=== PATIENT | male | born 1970 | race Native Hawaiian/Other Pacific Islander ===

== ENCOUNTER 2017-07-30 15:26 | Emergency (ER) | payer OTHER ==
[~2017-07-30] VITALS: Ht 182.9 cm; Wt 122.5 kg
[2017-07-30 16:26] LABS: PLATELET COUNT 310 K/uL (142-355)
[2017-07-30 16:32] LABS: POTASSIUM 3.5 mmol/L (3.6-5.2)
== END 2017-07-30 17:25 | disposition home or self-care (01) ==
LOC: ED 15:26
PROVIDERS: Family Medicine
DX: M51.86 Other intervertebral disc disorders, lumbar region (principal)
CPT/HCPCS: 80048; 85027; 96372; 99283; J1885

== ENCOUNTER 2018-01-21 13:41 | Outpatient (CLI) | payer OTHER | END 2018-01-21 22:27 | disposition home or self-care (01) | LOC: MRI 13:41 | DX: M54.16 Radiculopathy, lumbar region (principal) ==

== ENCOUNTER 2020-06-21 11:41 | Outpatient (CLI) | payer OTHER | END 2020-06-21 21:03 | disposition home or self-care (01) | LOC: MRI 11:41 | PROVIDERS: ATTEND Nurse Practitioner Adult Health | DX: M54.2 Cervicalgia (principal); M54.6 Pain in thoracic spine ==

== ENCOUNTER 2020-11-22 14:28 | Emergency (ER) | payer OTHER ==
[~2020-11-22] VITALS: Ht 182.9 cm; Wt 132.9 kg
[2020-11-22 15:18] VITALS: BP 165/96; TEMP 98
== END 2020-11-22 15:20 | disposition home or self-care (01) ==
LOC: ED 14:28
DX: M77.32 Calcaneal spur, left foot (principal)
CPT/HCPCS: 96372; 99282; 99283; J1885

== ENCOUNTER 2021-01-13 08:07 | Outpatient (CLI) | payer OTHER | END 2021-01-13 20:47 | disposition home or self-care (01) | LOC: MRI 08:07 | PROVIDERS: ATTEND Physician Assistant Surgical | DX: M54.17 Radiculopathy, lumbosacral region (principal) ==